=== PATIENT | female | born 2000 | race Hispanic/Latino ===

== ENCOUNTER 2022-09-13 20:53 | Inpatient (IN) | payer MEDICAID ==
[~2022-09-13] VITALS: Ht 160 cm; Wt 77.9 kg
[2022-09-13 21:26] LABS: BASOPHILS % (AUTO) 0.2 % (0.0-5.0); EOSINOPHILS % (AUTO) 1.5 % (0.0-8.0); HEMATOCRIT 41.2 % (36-48); LYMPHOCYTES % (AUTO) 16.5 % (21.0-51.0); MEAN CORPUSCULAR HEMOGLOBIN 26.9 pg (27.0-33.0); MEAN CORPUSCULAR VOLUME 84.1 fL (80-100); MONOCYTES % (AUTO) 8.1 % (3.0-13.0); NEUTROPHILS % (AUTO) 73.2 % (40.0-77.0); PLATELET COUNT (AUTO) 278 K/uL (130-400); RED CELL DISTRIBUTION WIDTH 15.6 % (11.0-15.5); WHITE BLOOD COUNT (AUTO) 15.5 K/uL (4.8-10.8)
[2022-09-13 21:38] LABS: CREATININE 0.6 mg/dL (0.5-1.5); POTASSIUM 3.6 mmol/L (3.5-5.1)
[2022-09-13 21:43] LABS: TOTAL PROTEIN, SERUM 8.1 g/dL (6.0-8.3)
[2022-09-13 22:13] LABS: APPEARANCE,URINE CLEAR (CLEAR); BILIRUBIN,URINE NEGATIVE (NEGATIVE); COLOR,URINE LIGHT-YELLOW (YELLOW); GLUCOSE, URINE (UA) NEGATIVE (NEGATIVE); KETONES,URINE 10 mg/dL (NEGATIVE); LEUKOCYTE ESTERASE ,URINE 75 Leu/uL (NEGATIVE); NITRATE,URINE NEGATIVE (NEGATIVE); OCCULT BLOOD,URINE NEGATIVE (NEGATIVE); PROTEIN,URINE NEGATIVE (NEGATIVE)
[2022-09-13 22:15] LABS: BACTERIA,URINE RARE /HPF (None Seen); MUCUS,URINE RARE LPF (None Seen); SQUAMOUS EPITHELIAL CELL,UR FEW /HPF (0-2)
[2022-09-13 22:16] LABS: HCG,QUALITATIVE URINE NEGATIVE (NEGATIVE)
[2022-09-13] MEDS ORDERED: CEFTRIAXONE 1G VIAL ONE (22:52)
[2022-09-13] MEDS ORDERED: CEFTRIAXONE 1G VIAL IVP ONE (23:00)
[2022-09-13] MEDS ORDERED: KETOROLAC 30MG VIAL (30MG/ML) IVP ONE (23:30)
[2022-09-13] MEDS ORDERED: MORPHINE 4 MG SYG IVP ONE (23:30)
[2022-09-14] MEDS ORDERED: ONDANSETRON 4MG INJ IV PRN (02:00)
[2022-09-14] MEDS ORDERED: MORPHINE 4 MG SYG IV PRN (02:00)
[2022-09-14] MEDS ORDERED: ZOLPIDEM TARTRATE 5 MG TAB PO PRN (02:00)
[2022-09-14] MEDS: CEFTRIAXONE 1G VIAL IV SCH (02:00)
[2022-09-14] MEDS: LACTATED RINGERS 1000ML 1,000 ML IV SCH ×3 (02:15→20:44)
[2022-09-14 05:04] VITALS: BP 100/57
[2022-09-14 05:28] LABS: BASOPHILS % (AUTO) 0.4 % (0.0-5.0); EOSINOPHILS % (AUTO) 2.5 % (0.0-8.0); HEMATOCRIT 35.1 % (36-48); LYMPHOCYTES % (AUTO) 26.7 % (21.0-51.0); MEAN CORPUSCULAR HEMOGLOBIN 27.5 pg (27.0-33.0); MEAN CORPUSCULAR HGB CONC 32.8 g/dL (32.0-36.0); MONOCYTES % (AUTO) 9.8 % (3.0-13.0); NEUTROPHILS % (AUTO) 60.3 % (40.0-77.0); PLATELET COUNT (AUTO) 205 K/uL (130-400); RED BLOOD CELL COUNT(AUTO) 4.18 MIL/uL (4.00-5.50); RED CELL DISTRIBUTION WIDTH 15.4 % (11.0-15.5); WHITE BLOOD COUNT (AUTO) 10.4 K/uL (4.8-10.8)
[2022-09-14 05:41] LABS: INR 1.05 (0.85-1.15); PROTHROMBIN TIME 11.4 SEC (9.6-11.6)
[2022-09-14 05:42] LABS: PARTIAL THROMBOPLASTIN TIME 28.3 SEC (26.3-35.5)
[2022-09-14 05:47] LABS: CREATININE 0.5 mg/dL (0.5-1.5); MAGNESIUM 1.8 mg/dL (1.80-2.40); PHOSPHORUS 3.5 mg/dL (2.5-4.9)
[2022-09-14 06:44] LABS: POTASSIUM 2.9 mmol/L (3.5-5.1)
[2022-09-14] MEDS ORDERED: POTASSIUM CHLORIDE 20MEQ/100ML 100 ML IV ONE (06:51)
[2022-09-14] MEDS ORDERED: LIDOCAINE HCL-MPF 1% 2ML VIAL IV PRN (07:00)
[2022-09-14] MEDS ORDERED: POTASSIUM CHLORIDE 20MEQ/100ML 100 ML IV PRN (07:00)
[2022-09-14 08:00] VITALS: BP 125/73
[2022-09-14] MEDS: FAMOTIDINE 20MG VIAL IV SCH ×2 (08:33→20:44)
[2022-09-14] MEDS: ACETAMINOPHEN 325 MG TAB PO PRN ×2 (08:33→17:08)
[2022-09-14 09:29] LABS: HEMOGLOBIN A1C 5.1 % (4.0-6.0)
[2022-09-14 12:00] VITALS: BP 119/55
[2022-09-14 12:23] LABS: CREATININE 0.6 mg/dL (0.5-1.5); POTASSIUM 3.6 mmol/L (3.5-5.1)
[2022-09-14] MEDS: MORPHINE 2 MG SYG IV PRN (14:50)
[2022-09-14] MEDS ORDERED: POTASSIUM CHLORIDE 10% ELIXIR 20 MEQ/15 ML UDCUP PO PRN (15:00)
[2022-09-14] MEDS ORDERED: POTASSIUM CHLORIDE 10% ELIXIR 20 MEQ/15 ML UDCUP ONE (15:11)
[2022-09-14 16:00] VITALS: BP 110/53
[2022-09-14 21:30] VITALS: BP 133/65
[2022-09-14] MEDS: METRONIDAZOLE 500MG/100ML BAG 100 ML IVPB SCH (22:59)
[2022-09-15] VITALS (22 sets, daily range): BP systolic 103–138; BP diastolic 50–86
[2022-09-15] MEDS: CEFTRIAXONE 1G VIAL IV SCH (02:52)
[2022-09-15 04:46] LABS: BASOPHILS % (AUTO) 0.3 % (0.0-5.0); EOSINOPHILS % (AUTO) 2.6 % (0.0-8.0); HEMATOCRIT 33.7 % (36-48); LYMPHOCYTES % (AUTO) 24.2 % (21.0-51.0); MEAN CORPUSCULAR HEMOGLOBIN 27.6 pg (27.0-33.0); MEAN CORPUSCULAR HGB CONC 32.6 g/dL (32.0-36.0); MEAN CORPUSCULAR VOLUME 84.7 fL (80-100); MONOCYTES % (AUTO) 10.2 % (3.0-13.0); NEUTROPHILS % (AUTO) 62.3 % (40.0-77.0); PLATELET COUNT (AUTO) 210 K/uL (130-400); RED BLOOD CELL COUNT(AUTO) 3.98 MIL/uL (4.00-5.50); RED CELL DISTRIBUTION WIDTH 15.3 % (11.0-15.5); WHITE BLOOD COUNT (AUTO) 10.2 K/uL (4.8-10.8)
[2022-09-15 05:08] LABS: ALBUMIN 2.9 g/dL (3.5-5.0); CREATININE 0.6 mg/dL (0.5-1.5); MAGNESIUM 1.7 mg/dL (1.80-2.40); POTASSIUM 3.5 mmol/L (3.5-5.1); TOTAL PROTEIN, SERUM 6.5 g/dL (6.0-8.3)
[2022-09-15] MEDS: METRONIDAZOLE 500MG/100ML BAG 100 ML IVPB SCH ×3 (05:37→21:13)
[2022-09-15] MEDS ORDERED: MAGNESIUM 2GM PREMIX 50ML 50 ML IV PRN (06:00)
[2022-09-15] MEDS ORDERED: BUPIVACAINE/PF 0.5% 10ML VIAL ONE (06:12)
[2022-09-15] MEDS ORDERED: ACET-2079 PO (08:25)
[2022-09-15] MEDS: LACTATED RINGERS 1000ML 1,000 ML IV SCH (08:29)
[2022-09-15] MEDS ORDERED: MORPHINE 2 MG SYG IV PRN (08:30)
[2022-09-15] MEDS ORDERED: HYDROCODONE/ACETAMINOPHEN 5/325 MG TAB PO PRN (08:30)
[2022-09-15] MEDS ORDERED: ONDANSETRON 4MG INJ IVP PRN (08:30)
[2022-09-15] MEDS ORDERED: PROPOFOL 10 MG/ML 20ML VIAL IV ONE (08:37)
[2022-09-15] MEDS ORDERED: ROCURONIUM 10MG/1ML SYR 10 MG/ML ML ONE ×2 (08:37→09:29)
[2022-09-15] MEDS ORDERED: MIDAZOLAM HCL 1 MG/ML 2ML VIAL ONE (08:37)
[2022-09-15] MEDS ORDERED: ONDANSETRON 4MG INJ ONE (08:37)
[2022-09-15] MEDS ORDERED: FENTANYL CITRATE PF 50 MCG/1 ML 5ML AMP IV ONE (08:38)
[2022-09-15] MEDS: FAMOTIDINE 20MG VIAL IV SCH ×2 (09:00→21:13)
[2022-09-15] MEDS ORDERED: PHENYLEPHRINE HCL 10 MG/ML 1ML VIAL IV ONE (09:09)
[2022-09-15] MEDS ORDERED: MEPERIDINE-PF 25 MG/ML SYG ONE ×3 (09:27→13:13)
[2022-09-15] MEDS ORDERED: FENTANYL CITRATE PF 50 MCG/1 ML 2ML VIAL ONE ×2 (11:14→12:37)
[2022-09-15] MEDS ORDERED: GLYCOPYRROLATE 1 MG/5 ML SYRINGE ONE (12:09)
[2022-09-15] MEDS ORDERED: NEOSTIGMINE 5MG/5ML SYR IV ONE (12:09)
[2022-09-15] MEDS: D5W-1/2 NS/20MEQ KCL 1,000 ML IV SCH ×2 (16:08→21:50)
[2022-09-16 00:23] VITALS: BP 126/65
[2022-09-16] MEDS: CEFTRIAXONE 1G VIAL IV SCH (00:31)
[2022-09-16] MEDS: MORPHINE 2 MG SYG IV PRN (00:31)
[2022-09-16 03:48] VITALS: BP 108/64
[2022-09-16] MEDS: METRONIDAZOLE 500MG/100ML BAG 100 ML IVPB SCH (05:34)
[2022-09-16] MEDS: FAMOTIDINE 20MG VIAL IV SCH (07:59)
[2022-09-16] MEDS: KCL 20 MEQ ERTAB PO PRN ×2 (08:01→09:19)
[2022-09-16 08:07] VITALS: BP 116/63
[2022-09-16 11:01] VITALS: BP 116/68
[2022-09-16] MEDS: D5W-1/2 NS/20MEQ KCL 1,000 ML IV SCH (11:10)
[2022-09-16] MEDS ORDERED: LEVO-70 PO (11:38)
[2022-09-16] MEDS ORDERED: IBUP-2077 PO (11:38)
[2022-09-16 16:31] VITALS: BP 118/68
== END 2022-09-16 19:55 | disposition home or self-care (01) | DRG 263 ==
LOC: EDH 20:53 → EDHIP 20:54 → 4CH 09-14 03:51
PROVIDERS: ADMIT Internal Medicine; ATTEND Internal Medicine
PROC: 0FT44ZZ Resection of Gallbladder, Percutaneous Endoscopic Approach (ICD-10-PCS; principal; 2022-09-15 08:55)
PROC: 0UT64ZZ Resection of Left Fallopian Tube, Percutaneous Endoscopic Approach (ICD-10-PCS; 2022-09-16)
PROC: 0UT14ZZ Resection of Left Ovary, Percutaneous Endoscopic Approach (ICD-10-PCS; 2022-09-16)
PROC: 0UN14ZZ Release Left Ovary, Percutaneous Endoscopic Approach (ICD-10-PCS; 2022-09-16)
DX: K80.00 Calculus of gallbladder with acute cholecystitis without obstruction (principal); B96.1 Klebsiella pneumoniae [K. pneumoniae] as the cause of diseases classified elsewhere; D27.1 Benign neoplasm of left ovary; Z20.822 Contact with and (suspected) exposure to COVID-19; K66.0 Peritoneal adhesions (postprocedural) (postinfection); N10 Acute pyelonephritis; R00.1 Bradycardia, unspecified; Z68.30 Body mass index [BMI] 30.0-30.9, adult; F32.A Depression, unspecified; F41.9 Anxiety disorder, unspecified; Z98.2 Presence of cerebrospinal fluid drainage device
CPT/HCPCS: 36415; 74176; 76705; 78227; 80048; 80053; 81001; 81025; 83036; 83605; 83690; 83735; 84100; 84132; 85025; 85610; 85730; 86850; 86900; 86901; 87040; 87077; 87088; 87186; 87635; 93005; A9537; G0378; J0696; J1885; J2175; J2250; J2270; J2370; J2405; J2704; J2710; J3010; J3475; J3480; J3490; J7030

== ENCOUNTER 2022-09-30 16:44 | Emergency (ER) | payer MEDICAID ==
[~2022-09-30] VITALS: Ht 160 cm; Wt 52.2 kg
[~2022-09-30 16:44] MED LIST: ACET-2079 PO; IBUP-2077 PO; LEVO-70 PO
[2022-09-30] MEDS ORDERED: KETOROLAC 15MG/ML VIAL (15MG/ML) IV ONE (18:00)
[2022-09-30] MEDS ORDERED: 0.9% NACL 500ML IV.SOLN 500 ML IV ONE (18:00)
[2022-09-30 18:11] LABS: BASOPHILS % (AUTO) 0.7 % (0.0-5.0); EOSINOPHILS % (AUTO) 1.7 % (0.0-8.0); HEMATOCRIT 40.7 % (36-48); LYMPHOCYTES % (AUTO) 30.7 % (21.0-51.0); MEAN CORPUSCULAR HEMOGLOBIN 27.2 pg (27.0-33.0); MEAN CORPUSCULAR HGB CONC 32.4 g/dL (32.0-36.0); MEAN CORPUSCULAR VOLUME 83.9 fL (79-99); MONOCYTES % (AUTO) 4.8 % (3.0-13.0); NEUTROPHILS % (AUTO) 61.9 % (40.0-77.0); PLATELET COUNT (AUTO) 398 K/uL (130-400); RED BLOOD CELL COUNT(AUTO) 4.85 MIL/uL (4.00-5.50); RED CELL DISTRIBUTION WIDTH 14.3 % (11.0-15.5); WHITE BLOOD COUNT (AUTO) 8.8 K/uL (4.8-10.8)
[2022-09-30 18:21] LABS: CREATININE 0.7 mg/dL (0.5-1.5); POTASSIUM 4.2 mmol/L (3.5-5.1)
[2022-09-30 18:26] LABS: APPEARANCE,URINE CLOUDY (CLEAR); BILIRUBIN,URINE NEGATIVE (NEGATIVE); COLOR,URINE YELLOW (YELLOW); GLUCOSE, URINE (UA) NEGATIVE (NEGATIVE); KETONES,URINE 5 mg/dL (NEGATIVE); LEUKOCYTE ESTERASE ,URINE 25 Leu/uL (NEGATIVE); NITRATE,URINE NEGATIVE (NEGATIVE); OCCULT BLOOD,URINE NEGATIVE (NEGATIVE); PROTEIN,URINE 30 mg/dL (NEGATIVE)
[2022-09-30 18:26] LABS: ALBUMIN 4.1 g/dL (3.5-5.0)
[2022-09-30 18:28] LABS: HCG,QUALITATIVE URINE NEGATIVE (NEGATIVE)
[2022-09-30 18:32] LABS: BACTERIA,URINE RARE /HPF (None Seen); MUCUS,URINE MANY LPF (None Seen)
[2022-09-30] MEDS ORDERED: IOHEXOL 350 MG/ML 100ML INFUS..BTL IV ONE (18:50)
[2022-09-30] MEDS ORDERED: CLIN-141 PO (19:36)
[2022-09-30 19:52] VITALS: BP 123/71
== END 2022-09-30 19:55 | disposition home or self-care (01) ==
LOC: EDH 16:44
DX: T81.89XA Other complications of procedures, not elsewhere classified, initial encounter (principal); Z90.49 Acquired absence of other specified parts of digestive tract; Z79.1 Long term (current) use of non-steroidal anti-inflammatories (NSAID)
CPT/HCPCS: 99285; 74177; 96374; 96361; 80053; 85025; 87040 ×2; 87088; 83605; 81001; 81025; 36415; J7040; J1885; Q9967